=== PATIENT | female | born 1935 | race Caucasian/White ===

== ENCOUNTER → 2018-12-18 | Outpatient (CLI) | payer OTHER ==
[~2018-12-18] VITALS: Ht 162.6 cm; Wt 56.7 kg
[~2018-12-18] MED LIST: ASA81BEC PO; ASPIRIN325 PO; IBUPROFEN 600600 M1 PO; LIPITOR40 MG PO; PLAVIX 75 MG TA75 MG PO; PRINIVIL10 MG PO; SUPER THERAVIT1 EACH PO
[2018-12-18 12:34] VITALS: BP 172/68; BP 191/75
[2018-12-18 12:36] LABS: HEMATOCRIT 45.2 % (37.0-47.0); HEMOGLOBIN 15.3 gm/dL (12.0-15.0); MCHC 33.8 g/dL (28.0-37.0); MCV 94.8 fL (80.0-100.0); RBC 4.77 mil/uL (4.20-5.00); RDW 12.7 % (10.5-14.5); WBC 7.6 thou/uL (4.0-11.0)
[2018-12-18 12:44] LABS: CALCIUM 10.1 mg/dL (8.5-10.1); CREATININE 0.6 mg/dL (0.6-1.0); POTASSIUM 4.1 mmol/L (3.5-5.1)
[2018-12-18 18:05] VITALS: BP 106/44
--- NOTE | 2018-12-19 08:41 | EKG ---
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: Lisa RESENDIZ : 1935 Requested By: Zay Bennett Order Number: [id number] MD: Rizwan Saavedra Measurements Intervals [place] Rate: 67 P: 63 WV: 174 QRS: -22 QRSD: 85 T: 39 QT: 404 QTc: 427 Interpretive Statements Sinus rhythm Abnormal R-wave progression, early transition No previous ECG available for comparison Electronically Signed On 12-19-2018 8:40:51 CDT by Rizwan Saavedra [email or web address] <ELECTRONICALLY SIGNED> By: Rizwan Saavedra MD, [facility] 12/19/18 0840 1223 1223 Rizwan Saavedra MD, FACC /EPI
--- NOTE | 2018-12-19 10:02 | CATHLAB ---
[facility] [address] [place] [address] INVASIVE PROCEDURE REPORT Name: MARCELA DOOLEY [facility] [id number] Admission: 12/18/18 Attend Phys: Del Tian, Discharge: Date of : 35 Report #: [id number] THIS REPORT FOR: //name// APPROVED REPORT Study performed: 12/18/2018 13:50:36 Patient Details Patient Status: Out-Patient Room #: The patient is a 83 year-old female Event Personnel Zay Bennett Innovation Manager, [place] RN, Gayatri Lorenzo, Paulette Nava RTR ScrubCruzito Ashley RN vascular ultrasound technologist Performed Left Heart Cath w/or w/o Coronaries [id number] [facility] Indication Positive stress test Procedure Narrative A SHEATH BRITE-TIP 6F X 11CM ([id number]) sheath was inserted into the RFA^. Coronary angiography was performed using coronary diagnostic catheters. The right coronary system was accessed and visualized with a JR4 catheter. The left coronary system was accessed and visualized with a JL4 catheter. The left ventricle was accessed and visualized with a Pigtail catheter. Left ventriculogram was performed in 30 degree projection. Closure device was deployed with a 6 Fr MYNX CONTROL 6F/7F #[id number]. The patient tolerated the procedure well and there were no complications associated with the procedure. There was no hematoma. Intraoperative Conscious Sedation Sedation start time: 14:19 Case end Time: 16:06 Fentanyl 100 mcg Versed 1 mg Sedation times are combined for carotid study and left heart cath. Contrast and fluoro times and dosages are combined for carotid study and left heart cath. Fluoro Time: 17.80 minutes Dose: DAP 27620.00 cGycm2 [facility] [place] [address] INVASIVE PROCEDURE REPORT Name: MARCELA DOOLEY Hector Room #: [facility] Reyes#: [id number] Admission: 12/18/18 Attend Phys: Del Tian, Discharge: Date of : 35 Report #: [id number] Contrast Type and Amount: Visipaque 250 ml Conclusion #1 normal left ventricular size and systolic function EF 60% #2 left main is short mildly calcified giving rise to LAD and circumflex #3 the LAD is proximal calcification and eccentric lesion of 40-50% off the left main and then a proximal segment which is tortuous and calcified 50-60% mild disease distally #4 circumflex OM nondominant with a long ostial lesion of the large second OM 60% #5 dominant right coronary moderately diseased calcified throughout no high-grade occlusive disease smaller in caliber. The PDA is minimal in distribution. Admonitions plan continue aggressive risk factor modification. No indication for coronary intervention. <ELECTRONICALLY SIGNED> By: Zay Bennett MD, FACC 12/19/181 00 00 Zay Bennett MD, FAC /INF
--- NOTE | 2018-12-30 13:07 | HC ---
[facility] [place] [address] CONSULTATION Name: MARCELA DOOLEY Room #: REG [facility]#: [id number] Admission: 12/18/18 Attend Phys: Del Tian MD Discharge: Date of : 35 Report #: [id number] THIS REPORT FOR: //name// CC: Del Blanco REASON FOR CONSULT: The patient was seen at the request of Dr. Tian. HISTORY OF PRESENT ILLNESS: The patient is an 83-year-old with a high-grade right internal carotid stenosis by outpatient duplex evaluation. The patient has a history of carotid artery disease with an endarterectomy in 2013 at [facility]. The patient denies stroke or transient ischemic attack. Bilateral carotid bruit was heard and a recent carotid duplex shows an IC to CC ratio of 13.5 on the right reflecting a greater than 90% stenosis. The left side IC to CC ratio is 2.4 and arteriography shows a 60% lesion. Arteriography on the right side confirms that there was a tight lesion at the end of the endarterectomy, which could be either clamp injury or a flap from a localized dissection. PAST MEDICAL HISTORY: Significant for hypertension. The patient denies coronary artery disease. MEDICATIONS AT HOME: Includes aspirin, lisinopril, and vitamins. ALLERGIES: The patient claims to be ALLERGIC TO PENICILLIN, which caused a rash in the distant past. The patient has had other antibiotics without difficulty, however. SOCIAL HISTORY: The patient states that she is a longtime smoker who may have quit recently. The patient uses alcohol as well. FAMILY HISTORY: Not significant for in this context. REVIEW OF SYSTEMS: GENERAL: No weight loss. No fever or chills. EYES: No vision change. ENT: No hearing loss, sinus problems or drainage. CARDIAC: Denies chest pain or palpitations. RESPIRATORY: Denies cough or sputum production. GASTROINTESTINAL: Denies nausea, vomiting, blood in stools. GENITOURINARY: Denies urgency, frequency or blood in urine. MUSCULOSKELETAL: No new bone or joint pain. SKIN: No rash or infection. ENDOCRINE: No goiter, no tremor. NEUROLOGIC: No motor or sensory dysfunction. HEMATOLOGIC: No bruisability or bleeding. [facility] [address] [place] [address] CONSULTATION Name: MARCELA DOOLEY Room #: [facility]#: [id number] Admission: 12/18/18 Attend Phys: Del Tian MD Discharge: Date of : 35 Report #: [id number] PHYSICAL EXAMINATION: VITAL SIGNS: Currently, the patient is hypertensive with blood pressure 180, heart rate 89, sinus. GENERAL: The patient is lying in bed, comfortable after cardiac catheterization. HEENT: Normocephalic. Pupils are round, equal. No arcus. No icterus. NECK: No mass, high pitched bruit on the right and medium pitched bruit on the left. CHEST: Clear to auscultation. HEART: Rhythm regular. ABDOMEN: Soft. EXTREMITIES: No clubbing, cyanosis or edema. SKIN: No rash or infection. No petechiae or rashes. Pulses 2+ radial pulse on the right, 1+ on the left. ASSESSMENT: The patient has important carotid artery disease. We have recommended transcarotid arterial revascularization. Risks and details of this include but not limited to bleeding, infection, anesthesia risks, and stroke and neurologic dysfunction. The importance of taking aspirin, Plavix, and a statin prior to surgery was stressed and these medications were prescribed for the patient. Arrangements were made for us to bring the patient back for anesthesia preop evaluation on Saturday and surgery on Saturday. All questions were answered. The patient understands the risks and details, options and alternatives, and wishes to proceed. Thank you for the consult. <ELECTRONICALLY SIGNED> By: Manuel Triplett MD 12/30/18 1307 1637 2229 Manuel Triplett MD /nt
== END | disposition home or self-care (01) ==
LOC: SPEC 11:19
PROVIDERS: Internal Medicine Cardiovascular Disease
DX: R94.39 Abnormal result of other cardiovascular function study (principal); I25.84 Coronary atherosclerosis due to calcified coronary lesion; I70.1 Atherosclerosis of renal artery; I65.23 Occlusion and stenosis of bilateral carotid arteries; K55.1 Chronic vascular disorders of intestine; I10 Essential (primary) hypertension; I67.1 Cerebral aneurysm, nonruptured; I73.9 Peripheral vascular disease, unspecified; E78.5 Hyperlipidemia, unspecified; M19.90 Unspecified osteoarthritis, unspecified site; F17.210 Nicotine dependence, cigarettes, uncomplicated; Z98.890 Other specified postprocedural states; Z82.49 Family history of ischemic heart disease and other diseases of the circulatory system; Z79.899 Other long term (current) drug therapy

== ENCOUNTER 2018-12-24 08:48 | Inpatient (IN) | payer OTHER ==
[2018-12-22 10:27] LABS: ABSOLUTE NEUTROPHILS 7.3 thou/uL (1.4-8.2); BASOPHILS 0.6 % (0.0-2.0); EOSINOPHILS 0.9 % (0.0-3.0); HEMATOCRIT 42.6 % (37.0-47.0); HEMOGLOBIN 14.3 gm/dL (12.0-15.0); LYMPHOCYTES 12.6 % (24.0-44.0); MCH 32.2 pg (26.0-34.0); MCHC 33.6 g/dL (28.0-37.0); MCV 95.7 fL (80.0-100.0); MONOCYTES 6.3 % (1.0-8.0); PLATELET COUNT 173 thou/uL (150-400); POLYS 79.6 % (36.0-66.0); RBC 4.45 mil/uL (4.20-5.00); RDW 12.6 % (10.5-14.5); URINE BILIRUBIN NEGATIVE (Negative); URINE BLOOD NEGATIVE (Negative); URINE CLARITY CLEAR; URINE COLOR YELLOW; URINE GLUCOSE-RANDOM* NEGATIVE (Negative); URINE KETONES NEGATIVE (Negative); URINE LEUKOCYTES-REFLEX NEGATIVE (Negative); URINE NITRITE-REFLEX NEGATIVE (Negative); URINE PROTEIN (DIPSTICK) NEGATIVE (Negative); URINE SPECIFIC GRAVITY <= 1.005 (1.005-1.035); URINE UROBILINOGEN 0.2 E.U./dl (0.2-1.0); WBC 9.1 thou/uL (4.0-11.0)
[2018-12-22 10:34] LABS: APTT 25.5 Seconds (24.5-32.8); PROTIME 9.8 Seconds (9.3-11.4)
[2018-12-22 10:40] LABS: ALBUMIN 3.7 g/dL (3.4-5.0); CALCIUM 9.3 mg/dL (8.5-10.1); CREATININE 0.5 mg/dL (0.6-1.0); POTASSIUM 4.5 mmol/L (3.5-5.1); TOTAL BILIRUBIN 0.4 mg/dL (<0.1-1.0)
[~2018-12-24] VITALS: Ht 162.6 cm; Wt 55.5 kg
[2018-12-24 15:01] VITALS: BP 160/49
[2018-12-24 19:02] VITALS: BP 107/42
--- NOTE | 2018-12-24 19:30 | NUR ---
Pt received to ICU 241 from PACU at 1900. Pt alert, oriented x4, no neurological deficit. Monitor sinus rhythm; right radial a-line intact with good wave form, correlates with BP cuff. Right neck drsg clean, dry, and intact. Left groin drsg. has 1-2 cm area red drainage, but site soft, no hematoma.
[2018-12-24 20:00] VITALS: BP 105/47
[2018-12-24 21:38] LABS: HEMATOCRIT 37.8 % (37.0-47.0); HEMOGLOBIN 12.7 gm/dL (12.0-15.0); MCH 31.7 pg (26.0-34.0); MCHC 33.5 g/dL (28.0-37.0); MCV 94.5 fL (80.0-100.0); RDW 12.3 % (10.5-14.5); WBC 11.1 thou/uL (4.0-11.0)
[2018-12-24 22:00] VITALS: BP 87/33
--- NOTE | 2018-12-24 23:42 | NUR ---
Cardene off at 2330. SBP in 90's.
[2018-12-25] VITALS (8 sets, daily range): BP systolic 84–135; BP diastolic 29–72
--- NOTE | 2018-12-25 03:49 | NUR ---
Pt has been off Cardene since 2329; maintaining SBP between 100-140.
[2018-12-25 06:00] LABS: HEMOGLOBIN 12.3 gm/dL (12.0-15.0); MCH 31.5 pg (26.0-34.0); MCHC 33.1 g/dL (28.0-37.0); MCV 95.2 fL (80.0-100.0); RBC 3.89 mil/uL (4.20-5.00); RDW 12.7 % (10.5-14.5)
[2018-12-25 06:12] LABS: CALCIUM 8.5 mg/dL (8.5-10.1); CREATININE 0.4 mg/dL (0.6-1.0)
--- NOTE | 2018-12-25 07:28 | NUR ---
Pt stable this shift. Able to wean off Cardene at 2330 and keep it off. IV fluids dc'd this a.m. as pt taking po very well. Monitor sinus rhythm. Urine output adequate. No changes in right neck and left groin sites.
--- NOTE | 2018-12-25 09:09 | NUR ---
0750-OOB TO CHAIR W ASSIST X1.--VW
--- NOTE | 2018-12-25 11:17 | NUR ---
CHICA DTR AT BEDSIDE.AMBULATING IN ICU W P.T.--VW
[2018-12-25] MEDS ORDERED: PLAVIX 75 MG TA75 MG PO (12:31)
[2018-12-25] MEDS ORDERED: ASPIRIN325 PO ×2 (12:32→13:27)
--- NOTE | 2018-12-25 13:33 | NUR ---
SEEN BY PRIYA Kenny EVERYTHING OFF PT. PT DRESSED,SITTING UP IN CHAIR,WAITING ON RIDE. Zoya CLARKE, TO FINISH DISCH IN COMPUTER.--VW
--- NOTE | 2018-12-25 14:32 | NUR ---
DISCHARGE INSTRUCTIONS GIVEN. HOME W SON,AMBULATED TO FRONT OF [facility] W RN AT SIDE.ALL BELONGINGS W PT.--VW
--- NOTE | 2018-12-30 13:08 | O ---
[facility] [place] [address] [place] [address] OPERATIVE REPORT Name: MARCELA DOOLEY Room #: 241-P [facility] M.R.#: [id number] Admission: 12/24/18 Attend Phys: Manuel Triplett MD Discharge: 12/25/18 Date of : 35 Report #: [id number] THIS REPORT FOR: //name// CC: Edouard Triplett DATE OF SERVICE: 12/24/2018 PREOPERATIVE DIAGNOSIS: Right carotid artery stenosis (recurrent). POSTOPERATIVE DIAGNOSIS: Right carotid artery stenosis (recurrent). OPERATION: Transcarotid arterial revascularization (TCAR, right). SURGEONS: Dr. Manuel Triplett and Del Tian MD PROCEDURE ANALYST: MEGHAN Camarillo. ANESTHESIA: General. INDICATIONS: The patient is an 83-year-old who had carotid artery surgery approximately 2 years ago at a different facility. Unfortunately, current study shows a 95% stenosis at the distal end of this endarterectomy. This appears to be a flap rather than atheroma, but it is difficult to know simply by radiography. In any event, because of the recurrent and distal nature of the stenosis, we felt that TCAR was appropriate. TECHNIQUE: After general anesthesia was established, an incision was made in the right neck at the proximal end of the old incision using the previous scar. The common carotid was identified and controlled and a pursestring was placed in it. The femoral component was placed by using a vascular needle followed by guidewire under ultrasound guidance and to enter the left femoral vein and over the guidewire, the TCAR femoral component was placed. Through the pursestring in the common carotid, after heparin was given, the arterial needle was placed and the guidewire and catheter were placed under fluoroscopic guidance and through the catheter, a stiffer wire was placed and the cervical component of the TCAR delivery system was placed. Good flow was established through the shunt and the common carotid was occluded when we were satisfied with the ACT. Through the cervical component, the [facility] [email or web address] [address] OPERATIVE REPORT Name: MARCELA DOOLEY Room #: 241-P [facility] ..#: [id number] Admission: 12/24/18 Attend Phys: Manuel Triplett MD Discharge: 12/25/18 Date of : 35 Report #: [id number] arteriogram was taken and then pre-dilatation was done using a 4.5 x 30 balloon. A 10 x 40 stent was placed across the lesion and followed by a 5.5 x 30 post-balloon dilatation. We waited the requisite 2 minutes and performed an arteriogram. This showed good position of the stent and good flow through the stent and satisfactory resolution of the lesion. Antegrade flow was reestablished. The TCAR shunt was dismantled. The cervical component was removed and the pursestring was tied and hemostasis was ascertained. The femoral component was removed and pressure was applied. Protamine was given to reverse the heparin. When hemostasis was satisfactory, the wound was closed in layers. The patient was taken to the recovery area in good condition where her neurologic progress was monitored. All counts reported as correct. <ELECTRONICALLY SIGNED> By: Manuel Triplett MD 12/30/18 1308 1632 1723 Manuel Triplett MD /nt
== END 2018-12-25 14:30 | disposition home or self-care (01) | DRG 36 ==
LOC: PRE 08:48 → TBA 12:29 → ICU 12:29
PROVIDERS: Physician Assistant; ADMIT Surgery Vascular Surgery
PROC: 037K3DZ Dilation of Right Internal Carotid Artery with Intraluminal Device, Percutaneous Approach (ICD-10-PCS; principal; 2018-12-24)
DX: I65.21 Occlusion and stenosis of right carotid artery (principal); I10 Essential (primary) hypertension; E78.5 Hyperlipidemia, unspecified; Z71.6 Tobacco abuse counseling; Z79.899 Other long term (current) drug therapy
CPT/HCPCS: 10078; 47375; 48888; 50010; 50101; 50386; 50417; 50455; 51751; 54118; 56524; 56526; 56528; 62110; 62900; 70005

== ENCOUNTER → 2019-08-18 | Outpatient (CLI) | payer OTHER | LOC: SJCVCIMAG 08:55 | PROVIDERS: ATTEND Nuclear Medicine Nuclear Cardiology | DX: I65.22 Occlusion and stenosis of left carotid artery (principal); K55.1 Chronic vascular disorders of intestine; I10 Essential (primary) hypertension; I25.10 Atherosclerotic heart disease of native coronary artery without angina pectoris; I67.1 Cerebral aneurysm, nonruptured; E78.00 Pure hypercholesterolemia, unspecified; Z95.828 Presence of other vascular implants and grafts; F17.200 Nicotine dependence, unspecified, uncomplicated ==

== ENCOUNTER → 2020-03-08 | Outpatient (CLI) | payer OTHER | LOC: SJCVCIMAG 11:18 | PROVIDERS: ATTEND Internal Medicine Cardiovascular Disease | DX: I70.203 Unspecified atherosclerosis of native arteries of extremities, bilateral legs (principal); I65.22 Occlusion and stenosis of left carotid artery; I77.9 Disorder of arteries and arterioles, unspecified; E78.00 Pure hypercholesterolemia, unspecified; K55.1 Chronic vascular disorders of intestine; I25.10 Atherosclerotic heart disease of native coronary artery without angina pectoris; I10 Essential (primary) hypertension; I67.1 Cerebral aneurysm, nonruptured; F17.210 Nicotine dependence, cigarettes, uncomplicated; Z95.828 Presence of other vascular implants and grafts; Z79.82 Long term (current) use of aspirin; Z79.899 Other long term (current) drug therapy ==

== ENCOUNTER → 2020-09-27 | Outpatient (CLI) | payer OTHER | LOC: SJCVCIMAG 08:17 | PROVIDERS: ATTEND Internal Medicine Cardiovascular Disease | DX: I08.3 Combined rheumatic disorders of mitral, aortic and tricuspid valves (principal); I65.23 Occlusion and stenosis of bilateral carotid arteries; I27.20 Pulmonary hypertension, unspecified; I25.10 Atherosclerotic heart disease of native coronary artery without angina pectoris; I73.9 Peripheral vascular disease, unspecified; K55.1 Chronic vascular disorders of intestine; I77.9 Disorder of arteries and arterioles, unspecified; I10 Essential (primary) hypertension; E78.00 Pure hypercholesterolemia, unspecified; F17.210 Nicotine dependence, cigarettes, uncomplicated; Z72.89 Other problems related to lifestyle; Z79.82 Long term (current) use of aspirin; Z79.899 Other long term (current) drug therapy; Z88.0 Allergy status to penicillin; E78.5 Hyperlipidemia, unspecified ==